=== PATIENT | male | born 1965 | race Caucasian/White ===

== ENCOUNTER 2016-11-22 05:03 | Emergency (ER) | payer OTHER ==
[2016-11-22 05:14] VITALS: BP 121/66
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
== END 2016-11-22 05:51 | disposition home or self-care (01) ==
LOC: JD.ED 05:03
DX: S71.131A Puncture wound without foreign body, right thigh, initial encounter (principal); S70.311A Abrasion, right thigh, initial encounter; Z88.5 Allergy status to narcotic agent; Z88.0 Allergy status to penicillin; W31.9XXA Contact with unspecified machinery, initial encounter
CPT/HCPCS: 99282; 99283